=== PATIENT | male | born 1945 | race Caucasian/White ===

== ENCOUNTER → 2016-11-09 | Outpatient (CLI) | payer OTHER | END | disposition disaster alternative care site (69) | LOC: GAIR 17:54 | DX: S39.93XA Unspecified injury of pelvis, initial encounter (principal); S27.0XXA Traumatic pneumothorax, initial encounter; M25.552 Pain in left hip; G47.30 Sleep apnea, unspecified; E11.9 Type 2 diabetes mellitus without complications; V87.9XXA Person injured in other specified (collision)(noncollision) transport accidents involving nonmotor vehicle (traffic), initial encounter | CPT/HCPCS: A0422; A0431; A0436; J2405; J3010 ==